=== PATIENT | male | born 1995 | race Caucasian/White ===

== ENCOUNTER 2025-01-23 20:37 | Emergency (ER) | payer MEDICAID ==
[~2025-01-23] VITALS: Ht 182.9 cm; Wt 131.4 kg
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
[2025-01-23] MEDS: TETanus/Pertussis (Acell)/Diphther VAC/PF (Tdap-Adult) 0.5ml syringe IMVAC ONE (22:20)
[2025-01-23 22:25] VITALS: BP 170/70; PULSE 80; RESP 20; TEMP 98.6; O2SAT 99
== END 2025-01-23 22:25 | disposition home or self-care (01) ==
LOC: ER 20:38
DX: S05.12XA Contusion of eyeball and orbital tissues, left eye, initial encounter (principal); S50.312A Abrasion of left elbow, initial encounter; V19.9XXA Pedal cyclist (driver) (passenger) injured in unspecified traffic accident, initial encounter; Y93.55 Activity, bike riding; Y92.89 Other specified places as the place of occurrence of the external cause; Y99.8 Other external cause status
CPT/HCPCS: 70450; 70486; 90471; 90715; 99285